=== PATIENT | male | born 1980 | race American Indian/Alaskan Native ===

== ENCOUNTER 2020-07-16 02:41 | Emergency (ER) | payer OTHER ==
[2020-07-16 02:48] VITALS: BP 139/76
[2020-07-16] MEDS ORDERED: IBUPROFEN 600 MG TAB PO ONE (03:12)
[2020-07-16] MEDS ORDERED: predniSONE 20 MG TAB PO ONE (03:49)
[2020-07-16] MEDS ORDERED: ACETAMINOPHEN 500 MG TAB PO ONE (03:53)
[2020-07-16] MEDS ORDERED: ACETAMINOPHEN 500 MG TAB ONE (03:54)
--- NOTE | 2020-07-16 04:52 | Emergency Department Report ---
ED Back Pain/Injury HPI - General Chief Complaint: Back Pain/Injury Stated Complaint: BACK PAIN Source: patient Limitations: No Limitations - History of Present Illness Initial Comments: Patient is a 39-year-old -[place] male with with no past medical history presents to the ED with complaint of acute onset persistent severe nontraumatic low back pain for the last 4 hours. Patient states that he may have twisted when turning in his bed and he suddenly felt a sharp pain in his low back and has been persistent since onset. Patient states that the pain is constant but does not radiate anywhere but stays in the low back. Patient denies dysuria, hematuria, urinary frequency and urgency, nausea and vomiting, abdominal pain, fever, chills, cough, chest pain or shortness of breath, traumatic injury or heavy lifting, numbness and tingling or weakness of lower extremities bilaterally or saddle paresthesia. MD Complaint: back pain, other (low back pain) -: Sudden, hour(s) (4) Similar Symptoms Previously: Yes Place: home Radiation: none Severity: severe Severity scale (0 -10): 8 Quality: sharp, aching Consistency: constant Improves With: none Worsens With: none Context: turning/twisting Associated Symptoms: denies other symptoms. denies: confusion, weakness, chest pain, numbness, difficulty walking, diaphoresis, incontinence, constipation, headaches, abdominal pain, loss of appetite, nausea/vomiting, rash, shortness of breath - Related Data Previous Rx's Medication Instructions Recorded Last Taken Type Ibuprofen [Motrin] 800 mg PO Q8HR PRN #30 tablet 07/16/20 Unknown Rx methOCARBAMOL [Robaxin TAB] 750 mg PO Q8H PRN #30 tablet 07/16/20 Unknown Rx predniSONE [Deltasone] 40 mg PO QDAY #10 tab 07/16/20 Unknown Rx Allergies Allergy/AdvReac Type Severity Reaction Status Date / Time No Known Allergies Allergy Unverified 07/16/20 03:12 ED Review of Systems ROS: Stated complaint: BACK PAIN Other details as noted in HPI Constitutional: denies: chills, fever Eyes: denies: eye pain, eye discharge, vision change ENT: denies: ear pain, throat pain Respiratory: denies: cough, shortness of breath, wheezing Cardiovascular: denies: chest pain, palpitations Endocrine: no symptoms reported Gastrointestinal: denies: abdominal pain, nausea, diarrhea Genitourinary: denies: urgency, dysuria Musculoskeletal: back pain (low back pain). denies: joint swelling, arthralgia Skin: denies: rash, lesions Neurological: denies: headache, weakness, paresthesias Psychiatric: denies: anxiety, depression Hematological/Lymphatic: denies: easy bleeding, easy bruising ED Past Medical Hx - Past Medical History Previous Medical History?: No - Surgical History Past Surgical History?: No - Social History Smoking Status: Never Smoker Substance Use Type: None - Medications Home Medications: Home Medications Medication Instructions Recorded Confirmed Last Taken Type Ibuprofen [Motrin] 800 mg PO Q8HR PRN #30 tablet 07/16/20 Unknown Rx methOCARBAMOL [Robaxin TAB] 750 mg PO Q8H PRN #30 tablet 07/16/20 Unknown Rx predniSONE [Deltasone] 40 mg PO QDAY #10 tab 07/16/20 Unknown Rx ED Physical Exam - General Limitations: No Limitations General appearance: alert, in no apparent distress - Head Head exam: Present: atraumatic, normocephalic, normal inspection - Eye Eye exam: Present: normal appearance, PERRL, EOMI Pupils: Present: normal accommodation - ENT ENT exam: Present: normal exam, normal orophraynx, mucous membranes moist, TM's normal bilaterally, normal external ear exam - Neck Neck exam: Present: normal inspection, full ROM - Respiratory Respiratory exam: Present: normal lung sounds bilaterally. Absent: respiratory distress, wheezes, rhonchi, chest wall tenderness - Cardiovascular Cardiovascular Exam: Present: regular rate, normal rhythm, normal heart sounds. Absent: systolic murmur, diastolic murmur, rubs, gallop - GI/Abdominal GI/Abdominal exam: Present: soft, normal bowel sounds. Absent: tenderness, rebound, hyperactive bowel sounds, hypoactive bowel sounds - Extremities Exam Extremities exam: Present: normal inspection, full ROM, normal capillary refill - Back Exam Back exam: Present: normal inspection, full ROM, tenderness (Palpable lumbosacral paraspinal musculoskeletal tenderness), muscle spasm, paraspinal tenderness. Absent: CVA tenderness (R), vertebral tenderness - Neurological Exam Neurological exam: Present: alert, oriented X3, CN II-XII intact, normal gait, reflexes normal - Psychiatric Psychiatric exam: Present: normal affect, normal mood, anxious - Skin Skin exam: Present: warm, dry, intact, normal color. Absent: rash ED Course Vital Signs 07/16/20 02:47 Temperature 98.0 F Pulse Rate 73 Respiratory 17 Rate Blood Pressure 139/76 O2 Sat by Pulse 97 Oximetry ED Medical Decision Making - Medical Decision Making This is a 39-year-old -[place] male with with no past medical history presents to the ED with complaint of acute onset persistent severe nontraumatic low back pain for the last 4 hours. Patient states that he may have twisted when turning in his bed and he suddenly felt a sharp pain in his low back and has been persistent since onset. Patient states that the pain is constant but does not radiate anywhere but stays in the low back. In the ED, patient is alert and oriented x3 and is not in distress. Patient was treated for pain in the ED and on reevaluation, patient's pain is well controlled medications. Patient fell asleep after being medicated with medications for pain. Patient was therefore discharged home on pain medications and muscle relaxants and was advised to follow-up with his primary care physician in 5 to 7 days for reevaluation or return to the ED immediately if symptoms get worse. - Differential Diagnosis Muscle spasm; muscle strain; kidney stones; lumbar disc disease Critical care attestation.: If time is entered above; I have spent that time in minutes in the direct care of this critically ill patient, excluding procedure time. ED Disposition Clinical Impression: Acute bilateral low back pain without sciatica, Spasm of muscle of lower back Disposition: DC-01 TO HOME OR SELFCARE Is pt being admited?: No Does the pt Need Aspirin: No Condition: Stable Instructions: Muscle Spasm (ED), Acute Low Back Pain (ED) Additional Instructions: Take medications with food, drink plenty of fluids and follow-up with your primary care physician in 5 to 7 days for reevaluation. Return to the ED immediately if symptoms get worse. Prescriptions: predniSONE [Deltasone] 40 mg PO QDAY #10 tab Ibuprofen [Motrin] 800 mg PO Q8HR PRN #30 tablet PRN Reason: Pain , Severe (7-10) methOCARBAMOL [Robaxin TAB] 750 mg PO Q8H PRN #30 tablet PRN Reason: Muscle Spasm Referrals: PRIMARY CARE, [Primary Care Provider] - 3-5 Days Forms: Work/School Release Form(ED) Time of Disposition: 04:50 Print Language: TAJIK
== END 2020-07-16 05:15 | disposition home or self-care (01) ==
LOC: ED 02:41
DX: M62.830 Muscle spasm of back (principal); M54.5 Low back pain; Z79.899 Other long term (current) drug therapy
CPT/HCPCS: 99282; J7512